=== PATIENT | female | born 1950 | race Caucasian/White ===

== ENCOUNTER 2024-06-12 06:48 | Inpatient (IN) ==
[2024-06-06 15:48] LABS: Basophils # (Auto) 0.02 K/mcL (0.00-0.30); Basophils % (Auto) 0.3 % (0.0-2.0); Eosinophils # (Auto) 0.07 K/mcL (0.00-0.70); Hematocrit 38.8 % (34.1-44.9); Hemoglobin 12.7 g/dL (11.2-15.7); Lymphocytes % (Auto) 36.9 % (15.5-49.0); Mean Cell Volume 88.6 fL (80.0-100.0); Mean Corpuscular HGB Conc 32.7 g/dL (31.0-36.0); Mean Platelet Volume 10.6 fL (8.8-12.5); Monocytes # (Auto) 0.42 K/mcL (0.10-0.90); Monocytes % (Auto) 6.2 % (1.0-12.0); Neutrophils % (Auto) 55.5 % (38.0-78.0); Platelet Count 218 K/mcL (140-440); RBC 4.38 M/mcL (3.59-5.38); Red Cell Distribution Width 14.8 % (11.5-14.5); WBC 6.8 K/mcL (4.5-11.0)
[2024-06-06 16:00] LABS: ALT/SGPT 13 U/L (<40); AST/SGOT 23 U/L (<32); Albumin 4.1 gm/dL (3.2-5.2); Albumin/Globulin Ratio 1.5 (1.0-2.3); Alkaline Phosphatase 85 U/L (39-117); Blood Urea Nitrogen 14 mg/dL (8-23); Calcium 9.4 mg/dL (8.6-10.4); Carbon Dioxide 29 mmol/L (22-30); Chloride 105 mmol/L (96-108); Globulin 2.8 gm/dL (2.2-3.7); Glomerular Filtration Rate 87; Glucose 83 mg/dL (70-105); Potassium 4.3 mmol/L (3.3-5.1); Sodium 145 mmol/L (133-145)
[2024-06-06 16:04] LABS: Appearance,Urine Clear (Clear); Bacteria,Urine Rare /hpf (0); Bilirubin,Urine Negative (Negative); Color,Urine Yellow; Glucose,Urine (UA) Negative (Negative); Ketones,Urine Negative (Negative); Leukocyte Esterase,Urine Negative /uL (Negative); Nitrate,Urine Negative (Negative); PH,Urine 6.5 (5.0-9.0); Protein,Urine Trace mg/dL (Negative); Specific Gravity,Urine 1.025 (1.000-1.035); Urine Blood Negative ery/mcL (Negative); Urine Hyaline Cast 2 /lph (0-2); Urine RBC 0 /hpf (0-3); Urine Squamous Epithelial Cell 0 /hpf (0-4); Urine WBC 2 /hpf (0-4); Urobilinogen,Urine Normal
[2024-06-06 16:43] LABS: INR 0.9 (0.9-1.1); Prothrombin Time 12.4 sec (11.9-14.5)
[~2024-06-12 06:48] MED LIST: IPRATROPIUM/ALBUTEROL 3 ML AMPUL.NEB NEB PRN
[2024-06-12] MEDS: PREGABALIN 75 MG CAPSULE PO SCH (07:34)
[2024-06-12] MEDS: oxyCODONE 10 MG TAB.ER.12H PO SCH (07:34)
[2024-06-12] MEDS: CELECOXIB 200 MG CAPSULE PO SCH (07:34)
[2024-06-12] MEDS: SCOPOLAMINE 1 PATCH PATCH TOPICAL PRN (07:35)
[2024-06-12] MEDS: ACETAMINOPHEN 500 MG TABLET PO SCH (07:35)
[2024-06-12] MEDS: ceFAZolin 2 GM in DEXTROSE 5% IN WATER 50 ML IV SCH (09:04)
[2024-06-12] MEDS ORDERED: ONDANSETRON 4 MG/2 ML VIAL ONE (09:09)
[2024-06-12] MEDS ORDERED: LIDOCAINE 2% PF 5 ML VIAL ONE (09:09)
[2024-06-12] MEDS ORDERED: DEXAMETHASONE 10 MG/ML VIAL ONE (09:09)
[2024-06-12] MEDS ORDERED: TRANEXAMIC ACID 1,000 MG/10 ML VIAL ONE (09:09)
[2024-06-12] MEDS ORDERED: ROPIVACAINE HCL/PF 30 ML VIAL IJ ONE (09:09)
[2024-06-12] MEDS ORDERED: PROPOFOL 200 MG/20 ML VIAL IV ONE ×3 (09:10→11:05)
[2024-06-12] MEDS ORDERED: KETAMINE 50 MG/ML Syringe IV ONE (09:10)
[2024-06-12] MEDS ORDERED: GLYCOPYRROLATE 0.2 MG/ML VIAL IV ONE (09:51)
[2024-06-12] MEDS: 0.9 % SODIUM CHLORIDE 9 ML, KETOROLAC 30 MG, ROPIVACAINE HCL/PF 49.5 ML, EPINEPHrine 0.... IJ SCH (09:52)
[2024-06-12] MEDS ORDERED: PHENYLephrine 1 MG/10 ML SYRINGE (ANEST) ONE (10:31)
[2024-06-12] MEDS ORDERED: IPRATROPIUM/ALBUTEROL 3 ML AMPUL.NEB NEB PRN (11:24)
[2024-06-12] MEDS ORDERED: fentaNYL 100 MCG/2 ML VIAL IV PRN (11:24)
[2024-06-12] MEDS ORDERED: ONDANSETRON 4 MG/2 ML VIAL IV PRN (11:24)
[2024-06-12] MEDS ORDERED: HYDROmorphone 1 MG/ML SYRINGE IV PRN (11:52)
[2024-06-12] MEDS ORDERED: MAGNESIUM HYDROXIDE 30 ML ORAL.SUSP PO PRN (11:52)
[2024-06-12] MEDS ORDERED: ACETAMINOPHEN 325 MG TABLET PO PRN (11:52)
[2024-06-12] MEDS ORDERED: POLYETHYLENE GLYCOL 3350 17 GM PACKET PO PRN (11:52)
[2024-06-12] MEDS ORDERED: traMADol 50 MG TABLET PO PRN (11:54)
[2024-06-12] MEDS ORDERED: ALBUTEROL SULFATE 60 PUFF INHALER INH PRN (11:54)
[2024-06-12] MEDS ORDERED: ZOLPIDEM 5 MG TABLET PO PRN (12:02)
[2024-06-12] MEDS: TRANEXAMIC ACID 1,000 MG/10 ML VIAL IV ONE (12:21)
[2024-06-12] MEDS: KETOROLAC 15 MG/ML VIAL IV SCH (13:12)
[2024-06-12] MEDS: 0.45 % SODIUM CHLORIDE 1,000 ML IV SCH (13:15)
[2024-06-12] MEDS: 0.9 % SODIUM CHLORIDE 10 ML SYRINGE IV SCH (13:35)
[2024-06-12] MEDS: HYDROcodone/APAP 10/325MG TABLET PO PRN (14:08)
[2024-06-12] MEDS: ceFAZolin 1 GM VIAL IV SCH (17:40)
[2024-06-12] MEDS: FERROUS SULFATE 325 MG TABLET PO SCH (21:31)
[2024-06-12] MEDS: GABAPENTIN 300 MG CAPSULE PO SCH (21:31)
[2024-06-12] MEDS: rOPINIRole 1 MG TABLET PO SCH (21:31)
[2024-06-12] MEDS: MELATONIN 3 MG TABLET PO PRN (21:31)
[2024-06-12] MEDS: SENNOSIDES 1 TABLET PO SCH (21:31)
[2024-06-12] MEDS: ASPIRIN 81 MG TAB.CHEW PO SCH (21:32)
[2024-06-12] MEDS: SERTRALINE 100 MG TABLET PO SCH (21:32)
[2024-06-12] MEDS: ATORVASTATIN 10 MG TABLET PO SCH (21:32)
[2024-06-13] MEDS: OMEPRAZOLE 20 MG CAPSULE PO SCH (07:02)
[2024-06-13] MEDS ORDERED: CYANOCOBALAMIN 1,000 MCG/ML VIAL IM SCH (09:00)
[2024-06-13] MEDS: VITAMIN E (DL,TOCOPHERYL ACET) 400 UNIT CAPSULE PO SCH (09:24)
[2024-06-13] MEDS: BISOPROLOL 5 MG TABLET PO SCH (09:24)
[2024-06-13] MEDS: MULTIVIT,THER IRON,CA,FA & MIN 1 TABLET PO SCH (09:24)
[2024-06-13] MEDS: LOSARTAN 25 MG TABLET PO SCH (09:24)
[2024-06-13] MEDS: amLODIPine 5 MG TABLET PO SCH (09:24)
[2024-06-14] MEDS ORDERED: SCOPOLAMINE 1 PATCH PATCH TOPICAL PRN (10:00)
== END 2024-06-13 11:45 | disposition home or self-care (01) | DRG 468 ==
LOC: MEDSUR 06:48 → EDSTATUS 13:15
PROVIDERS: ADMIT Orthopaedic Surgery; ATTEND Orthopaedic Surgery